=== PATIENT | male | born 1970 | race Caucasian/White ===

== ENCOUNTER → 2016-10-11 | Outpatient (CLI) | payer OTHER | LOC: M PAIN 11:20 | PROVIDERS: ATTEND Nurse Practitioner Family | DX: G89.29 Other chronic pain (principal); M54.6 Pain in thoracic spine; M54.5 Low back pain; R25.2 Cramp and spasm; J45.909 Unspecified asthma, uncomplicated; F17.200 Nicotine dependence, unspecified, uncomplicated; Z79.899 Other long term (current) drug therapy ==

== ENCOUNTER 2016-10-29 09:05 | Outpatient (RCR) | payer OTHER | END 2016-10-30 | LOC: M OT 09:05 | PROVIDERS: ATTEND Orthopaedic Surgery | DX: Z51.89 Encounter for other specified aftercare (principal); S52.551D Other extraarticular fracture of lower end of right radius, subsequent encounter for closed fracture with routine healing; S62.614D Displaced fracture of proximal phalanx of right ring finger, subsequent encounter for fracture with routine healing; S22.000D Wedge compression fracture of unspecified thoracic vertebra, subsequent encounter for fracture with routine healing; M54.9 Dorsalgia, unspecified ==

== ENCOUNTER 2016-10-31 10:34 | Outpatient (RCR) | payer OTHER | END 2016-11-27 | LOC: M OT 10:34 | PROVIDERS: ATTEND Orthopaedic Surgery | DX: Z51.89 Encounter for other specified aftercare (principal); M54.9 Dorsalgia, unspecified; G89.29 Other chronic pain; S22.000D Wedge compression fracture of unspecified thoracic vertebra, subsequent encounter for fracture with routine healing; X58.XXXD Exposure to other specified factors, subsequent encounter; Y93.9 Activity, unspecified; Y92.9 Unspecified place or not applicable; Y99.8 Other external cause status ==

== ENCOUNTER → 2016-11-08 | Outpatient (CLI) | payer OTHER ==
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
== END ==
LOC: M PAIN 09:20
PROVIDERS: ATTEND Nurse Practitioner Family
DX: Z09 Encounter for follow-up examination after completed treatment for conditions other than malignant neoplasm (principal); R25.2 Cramp and spasm; M54.6 Pain in thoracic spine; G89.29 Other chronic pain; M54.5 Low back pain; J44.9 Chronic obstructive pulmonary disease, unspecified; L23.81 Allergic contact dermatitis due to animal (cat) (dog) dander; J30.89 Other allergic rhinitis; Z79.899 Other long term (current) drug therapy

== ENCOUNTER → 2016-12-06 | Outpatient (CLI) | payer OTHER ==
--- NOTE | 2016-12-08 00:47 | ECWPNPC ---
PATIENT NAME: NENA BARRY : 1970 GENDER: MALE VISIT DATE: 12/06/2016 DISCHARGE DATE: 12/06/16 1035 VISIT LOCKED DATE TIME: PHYSICIAN: SARI GRANDE RESOURCE: SARI GRANDE REASON FOR APPOINTMENT 1. BACK PAIN HISTORY OF PRESENT ILLNESS HISTORY OF PRESENT ILLNESS: PAIN THE PATIENT DESCRIBES THE PAIN... FALL RISK SCREENING: SCREENING :NO FALLS IN THE PAST YEAR TODAY'S VISIT: NOTES: RATES PAIN TODAY 9/10. NOTES WORST PAIN ALONG SACRUM AND IN THORACIC MUSCLES. REPORTS METHOCARBAMEL WAS TOO BIG TO SWALLOW COMF AND DID NOT PRODUCE GOOD MUSCLE SPASM CONTROL.. CURRENT MEDICATIONS TAKING SYMBICORT 80-4.5 MCG/ACT AEROSOL 2 PUFFS INHALATION TWICE A DAY TAKING VENTOLIN HFA 108 (90 BASE) MCG/ACT AEROSOL SOLUTION 2 PUFFS NEEDED INHALATION EVERY 4 HRS TAKING SPIRIVA HANDIHALER 18 MCG CAPSULE INHALATION TAKING METHOCARBAMOL 750 MG TABLET 1 TABLET ORALLY Q 8 HRS TAKING GABAPENTIN 300 MG CAPSULE 1 CAPSULE ORALLY THREE TIMES A DAY TAKING FLUOXETINE 20 MG CAPSULE 2 CAPSULE IN THE MORNING ORALLY ONCE A DAY NOT-TAKING OMEPRAZOLE 40 MG CAPSULE DELAYED RELEASE 1 CAPSULE ORALLY ONCE A DAY NOT-TAKING MELOXICAM 7.5 MG TABLET 1 TABLET ORALLY ONCE A DAY NOT-TAKING BACLOFEN 20 MG TABLET 1 TABLET WITH FOOD OR MILK ORALLY EVERY 8 HRS NOT-TAKING BACLOFEN 10 MG TABLET 1 TABLET WITH FOOD OR MILK ORALLY THREE TIMES A DAY NOT-TAKING SYMBICORT 80-4.5 MCG/ACT AEROSOL 2 PUFFS INHALATION TWICE A DAY PAST MEDICAL HISTORY ASTHMA COPD ALLERGIES CATS/ENVIRONMENTAL SOCIAL HISTORY GENERAL: TOBACCO USE ARE YOU A:NONSMOKER LEARNING BARRIERS / SPECIAL NEEDS ORIENTED TO PLAN OF CARE: PATIENT, PAIN MANAGEMENT PATIENT, ORIENTED TO PLAN OF CARE: PATIENT, PAIN MANAGEMENT PATIENT. NEW PATIENT PAIN DIARY TODAY'S VISITNOTES FROM 0-10, WHAT LEVEL IS YOUR PAIN TODAY?0 PAIN CLINIC PFS, CLERGY, PUBLIC HEALTH REFERRALS PFS REFERRAL NEEDED?NO CLERGY REFERRAL NEEDED?NO PUBLIC HEALTH REFERRAL NEEDED?NO WAS THE PROVIDER NOTIFIED OF ANY PERTINENT INFO?NO PFS REFERRAL NEEDED?NO CLERGY REFERRAL NEEDED?NO PUBLIC HEALTH REFERRAL NEEDED?NO WAS THE PROVIDER NOTIFIED OF ANY PERTINENT INFO?NO REVIEW OF SYSTEMS CONSTITUTIONAL: ANY CHANGE IN YOUR MEDICAL CONDITION? NO . CHILLS NO . FEVER NO . INFECTION: DO YOU HAVE NEW INFECTIONS? NO . DO YOU HAVE HISTORY OF MRSA? NO . MUSCULOSKELETAL: ANY NEW PATTERNS OF PAIN OR NUMBNESS? PT REPORTS NEW NUMBNESS IN RIGHT FOOT, AND NEW PAIN IN BACK OF NECK . GASTROENTEROLOGY: ANY NEW CHANGE IN BOWEL CONTROL? NO . GENITOURINARY: ANY NEW CHANGE IN BLADDER CONTROL? NO . IS THERE A CHANCE YOU COULD BE ? NO . HEMATOLOGY/LYMPH: DO YOU TAKE ANY BLOOD THINNERS? (FOR EXAMPLE- COUMADIN, PLAVIX, AGGRENOX, PLATEL, PRADAXA, OR XARELTO) NO . WHEN WAS YOUR LAST DOSE? DATE: TIME: . NEUROLOGY: HAVE YOU FALLEN IN THE PAST 6 MONTHS? NO . ANY NEW EXTREMITY NUMBNESS OR WEAKNESS? NO . CARDIOLOGY: DO YOU HAVE A PACEMAKER OR DEFIBRILLATOR? NO . RESPIRATORY: HAVE YOU BEEN SICK IN THE PAST WEEK? NO . FEVER NO . FLU LIKE SYMPTOMS? NO . COUGH YES . INTEGUMENTARY: DO YOU HAVE ANY RASHES OR OPEN SORES? NO . ALLERGIC/IMMUNO: ARE YOU ALLERGIC TO SHELLFISH OR IV DYE? NO . ANY NEW ALLERGIES? NO . PSYCHIATRIC: DO YOU HAVE THOUGHTS OF HURTING YOURSELF OR SOMEONE ELSE? NO . ARE YOU ABUSED, NEGLECTED, OR IN AN UNSAFE ENVIRONMENT? NO . ENDOCRINOLOGY: ARE YOU DIABETIC? NO . OTHER: DO YOU NEED ANY PRESCRIPTIONS? NO . IF YES, PLEASE LIST: ____ . ANY NEW PROBLEMS WITH YOUR MEDICATIONS? NO . WHEN DID YOU LAST EAT? ____ . WHEN DID YOU LAST DRINK? ____ . WHAT DID YOU LAST DRINK? ____ . NAME OF PERSON DRIVING YOU HOME? ____ . DO YOU HAVE ANY OTHER QUESTIONS OR CONCERNS YES PT WOULD LIKE TO DISCUSS SOMETHING DIFFERENT FOR PAIN AND MUSCLE SPASMS, DOESN'T FEEL LIKE CURRENT MEDICATIONS ARE EFFECTIVE&NBSP;. REVIEWED BY: PROVIDER: SARI PAEZ . VITAL SIGNS WT 213.2 LBS, HT 67 IN, BMI 33.39 INDEX, BP 158/86 MM HG, HR 81 /MIN, RR 18 /MIN, TEMP 98.1 F, OXYGEN SAT % 94, SAFE IN ENV? (Y/N) YES, NA INITIALS TL 0931, REVIEWED BY: ANDREI. EXAMINATION GENERAL EXAMINATION: PSYCHALERT , ORIENTED X 3 , APPROPRIATE MOOD AND AFFECT . LUNGS:CLEAR TO AUSCULTATION BILATERALLY. HEART:HEART RATE REGULAR. MUSCULOSKELETAL:INCREASED MUSCLE TONE BILATERAL LOWER EXTREMITIES. TENDERNESS OVER LUMBAR SPINOUS PROCESSES AND ACROSS THE LUMBOSACRAL AXIS. TIGHT FIBROUS BANDS IDENTIFIED OVER THE LUMBAR PARAVERTEBRAL MUSCLES. HAS DIFFICULTY RISING TO A FULL UPRIGHT POSITION. GAIT WIDE-BASED AND ANTALGIC.. NEUROLOGIC EXAM:DTR'S 3+ BUE, 4+ WITH CROSSOVER BLE. MYOCLONIC JERKS. ASSESSMENTS SPASTICITY - R25.2 (PRIMARY) PAIN IN THORACIC SPINE - M54.6 OTHER CHRONIC PAIN - G89.29 LOW BACK PAIN ASSOCIATED WITH A SPINAL DISORDER OTHER THAN RADICULOPATHY OR SPINAL STENOSIS - M54.5 TREATMENT SPASTICITY START BACLOFEN TABLET, 20 MG, 1 TABLET WITH FOOD OR MILK, ORALLY, EVERY 8 HRS, 30 DAY(S), 90, REFILLS 2 START OXYCODONE HCL TABLET, 5 MG, 1 TABLET, ORALLY, EVERY 8-12 HRS PRN PAIN MDD=2, 30 DAY(S), 60, REFILLS 0 NOTES: HAS STOPPED RITALIN THIS SEEMS TO INCREASE HEADACHES. TO START ON SOMETHING NEW. NARCOTIC AGREEMENT AND UTOX TODAY, RISKS AND BENEFITS OF NARCOTIC/OPIOD MEDICATIONS WERE REVIEWED WITH PATIENT - THIS INCLUDES BUT IS NOT LIMITED TO RISK OF DEPENDANCE/DEVELOPMENT OF ADDICTION, MOOD DISTURBANCE AND DEPRESSION, OSTEOPOROSIS, HORMONAL AND LABIDAL CHANGES, RESPIRATORY DEPRESSION AND . PATIENT IS ADVISED NOT TO DRIVE WHILE ON THESE MEDICATIONS. CLINICAL NOTES: ISTOP REGISTRY REVIEWED AND DEMNOSTRATES COMPLLIANCE. BRINGS IN MEDICATIONS WHICH IS APPROPRIATE FOR WHAT WAS DISPENSED. RECENT URINE TOXICOLOGY REVIEWED. NO UNAUTHORIZED MEDICATIONS. NO ILLICIT SUBSTANCES AND PRESCRIBED MEDICATIONS WERE PRESENT. PROCEDURE CODES FA211 ESTABILISHED PATIENT [facility] CHARGE DISPOSITION & COMMUNICATION FOLLOW UP 26-28 DAYS ELECTRONICALLY SIGNED BY CLARKE OCONNELL ON 12/07/2016 AT 06:33 PM EST DISCLAIMER : THIS IS A VISIT SUMMARY EXTRACTED FROM THE [employer] CHART. IT IS NOT A COPY OF THE [employer] PROGRESS NOTE. GLENNY
== END ==
LOC: M PAIN 09:20
PROVIDERS: ATTEND Nurse Practitioner Family
DX: Z09 Encounter for follow-up examination after completed treatment for conditions other than malignant neoplasm (principal); G89.29 Other chronic pain; R25.2 Cramp and spasm; M54.6 Pain in thoracic spine; M54.5 Low back pain; J44.9 Chronic obstructive pulmonary disease, unspecified; Z79.899 Other long term (current) drug therapy

== ENCOUNTER → 2017-01-11 | Outpatient (CLI) | payer OTHER ==
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
== END ==
LOC: M PAIN 10:20
PROVIDERS: ATTEND Nurse Practitioner Family
DX: R25.2 Cramp and spasm (principal); M54.6 Pain in thoracic spine; G89.29 Other chronic pain; M54.5 Low back pain; Z79.891 Long term (current) use of opiate analgesic; Z79.899 Other long term (current) drug therapy; J45.909 Unspecified asthma, uncomplicated; J44.9 Chronic obstructive pulmonary disease, unspecified; L23.81 Allergic contact dermatitis due to animal (cat) (dog) dander

== ENCOUNTER → 2017-02-08 | Outpatient (CLI) | payer OTHER ==
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
== END ==
LOC: M PAIN 10:00
PROVIDERS: ATTEND Nurse Practitioner Family
DX: R25.2 Cramp and spasm (principal); M54.6 Pain in thoracic spine; G89.29 Other chronic pain; M54.5 Low back pain; Z79.899 Other long term (current) drug therapy; J44.9 Chronic obstructive pulmonary disease, unspecified; J30.81 Allergic rhinitis due to animal (cat) (dog) hair and dander

== ENCOUNTER → 2017-03-06 | Outpatient (CLI) | payer OTHER ==
--- NOTE | 2017-03-27 01:39 | ECWPNPC ---
PATIENT NAME: NENA BARRY : 1970 GENDER: MALE VISIT DATE: 03/06/2017 DISCHARGE DATE: 03/06/17 1325 VISIT LOCKED DATE TIME: PHYSICIAN: SARI GRANDE RESOURCE: SARI GRANDE HISTORY OF PRESENT ILLNESS HISTORY OF PRESENT ILLNESS: PAIN THE PATIENT DESCRIBES THE PAIN... FALL RISK SCREENING: SCREENING :TWO OR MORE FALLS WITH INJURY IN THE PAST YEAR TODAY'S VISIT: NOTES: RATES PAIN TODAY 8-9/10. DESCRIBES PAIN SHARP, STABBING, ACHING, SHOOTING THROBBING. PAIN IS CENTERED FROM SHOULDER BADES TO SACRUM, AND INTO RIGHT FOREARM AND HAND.. CURRENT MEDICATIONS TAKING SYMBICORT 80-4.5 MCG/ACT AEROSOL 2 PUFFS INHALATION TWICE A DAY TAKING VENTOLIN HFA 108 (90 BASE) MCG/ACT AEROSOL SOLUTION 2 PUFFS NEEDED INHALATION EVERY 4 HRS TAKING SPIRIVA HANDIHALER 18 MCG CAPSULE INHALATION TAKING FLUOXETINE 20 MG CAPSULE 2 CAPSULE IN THE MORNING ORALLY ONCE A DAY TAKING BACLOFEN 20 MG TABLET 1 TABLET WITH FOOD OR MILK ORALLY EVERY 8 HRS TAKING SINGULAIR 10 MG TABLET 1 TABLET IN THE EVENING ORALLY ONCE A DAY TAKING OMEPRAZOLE 40 MG CAPSULE DELAYED RELEASE 1 CAPSULE ORALLY ONCE A DAY TAKING GABAPENTIN 400 MG CAPSULE 1 CAPSULE ORALLY THREE TIMES A DAY TAKING OXYCODONE HCL 5 MG TABLET 1 TABLET ORALLY EVERY 8 HRS PRN MDD=3 NOT-TAKING NORCO 10-325 MG TABLET 1 TABLET NEEDED ORALLY EVERY 8-12 HRS PRN MDD=2 NOT-TAKING MELOXICAM 7.5 MG TABLET 1 TABLET ORALLY ONCE A DAY NOT-TAKING BACLOFEN 10 MG TABLET 1 TABLET WITH FOOD OR MILK ORALLY THREE TIMES A DAY NOT-TAKING SYMBICORT 80-4.5 MCG/ACT AEROSOL 2 PUFFS INHALATION TWICE A DAY DISCONTINUED METHOCARBAMOL 750 MG TABLET 1 TABLET ORALLY Q 8 HRS DISCONTINUED BACLOFEN 20 MG TABLET 1 TABLET WITH FOOD OR MILK ORALLY EVERY 8 HRS DISCONTINUED PREDNISONE 10 MG (21) TABLET THERAPY PACK DIRECTED ORALLY TAKE DIRECTEDON PACKAGE MEDICATION LIST REVIEWED AND RECONCILED WITH THE PATIENT PAST MEDICAL HISTORY ASTHMA COPD ALLERGIES CATS/ENVIRONMENTAL FAMILY HISTORY FATHER: MOTHER: ALIVE SIBLINGS: ALIVE SOCIAL HISTORY GENERAL: TOBACCO USE ARE YOU A:CURRENT SMOKER PATIENT COUNSELED ON THE DANGERS OF TOBACCO USE AND URGED TO QUIT:03/06/2017 ARE YOU INTERESTED IN QUITTING?NOT READY TO QUIT COUNSELED THE PATIENT ON SMOKING EFFECTS, EDUCATION [id number]/07/2017 PAIN CLINIC PFS, CLERGY, PUBLIC HEALTH REFERRALS CLERGY REFERRAL NEEDED?NO WAS THE PROVIDER NOTIFIED OF ANY PERTINENT INFO?NO PFS REFERRAL NEEDED?NO PUBLIC HEALTH REFERRAL NEEDED?NO PATIENT: ____. REVIEW OF SYSTEMS REVIEWED BY: PROVIDER: SARI PAEZ . CONSTITUTIONAL: ANY CHANGE IN YOUR MEDICAL CONDITION? YES,SHAKINESS . CHILLS NO . FEVER NO . INFECTION: DO YOU HAVE NEW INFECTIONS? NO . DO YOU HAVE HISTORY OF MRSA? NO . MUSCULOSKELETAL: ANY NEW PATTERNS OF PAIN OR NUMBNESS? NO . GASTROENTEROLOGY: ANY NEW CHANGE IN BOWEL CONTROL? NO . GENITOURINARY: ANY NEW CHANGE IN BLADDER CONTROL? NO . IS THERE A CHANCE YOU COULD BE ? NO . HEMATOLOGY/LYMPH: DO YOU TAKE ANY BLOOD THINNERS? (FOR EXAMPLE- COUMADIN, PLAVIX, AGGRENOX, PLATEL, PRADAXA, OR XARELTO) NO . WHEN WAS YOUR LAST DOSE? DATE: TIME: . NEUROLOGY: HAVE YOU FALLEN IN THE PAST 6 MONTHS? NO . ANY NEW EXTREMITY NUMBNESS OR WEAKNESS? NO . CARDIOLOGY: DO YOU HAVE A PACEMAKER OR DEFIBRILLATOR? NO . RESPIRATORY: HAVE YOU BEEN SICK IN THE PAST WEEK? NO . FEVER NO . FLU LIKE SYMPTOMS? NO . COUGH NO . INTEGUMENTARY: DO YOU HAVE ANY RASHES OR OPEN SORES? NO . ALLERGIC/IMMUNO: ARE YOU ALLERGIC TO SHELLFISH OR IV DYE? NO . ANY NEW ALLERGIES? NO . PSYCHIATRIC: DO YOU HAVE THOUGHTS OF HURTING YOURSELF OR SOMEONE ELSE? NO . ARE YOU ABUSED, NEGLECTED, OR IN AN UNSAFE ENVIRONMENT? NO . ENDOCRINOLOGY: ARE YOU DIABETIC? NO . OTHER: DO YOU NEED ANY PRESCRIPTIONS? YES . IF YES, PLEASE LIST: ____BACLOFEN,OXYCODONE,GABAPENTIN . ANY NEW PROBLEMS WITH YOUR MEDICATIONS? NO . WHEN DID YOU LAST EAT? ____ . WHEN DID YOU LAST DRINK? ____ . WHAT DID YOU LAST DRINK? ____ . NAME OF PERSON DRIVING YOU HOME? ____ . DO YOU HAVE ANY OTHER QUESTIONS OR CONCERNS NO . VITAL SIGNS WT 220.8 LBS, HT 67 IN, BMI 34.58 INDEX, BP 166/104 MM HG, REPEAT BP 148/89 MM HG, HR 76 /MIN, RR 18 /MIN, TEMP 98.6 F, OXYGEN SAT % 99%, NA INITIALS AW 1232, REVIEWED BY: PARMJIT KNOW ABOUT BP. EXAMINATION GENERAL EXAMINATION: PSYCHALERT , ORIENTED X 3 , APPROPRIATE MOOD AND AFFECT . LUNGS:CLEAR TO AUSCULTATION BILATERALLY. HEART:HEART RATE REGULAR. MUSCULOSKELETAL:HYPERSENSATIVITY TO LIGHT TOUCH OVER ENTIRE BACK. INCREASED MUSCLE TONE TO BILATRAL LOWER EXTREMITIES. , TRIGGER POINTS AND TIGHT FIBROUS BANDS IDENTIFIED OVER SACRUM AND ACROSS LUMBOSACRAL AXIS. NEUROLOGIC EXAM:DTR'S 3+ BUE, 4+ WITH CROSSOVER BLE. MYOCLONIC JERKS. ASSESSMENTS SPASTICITY - R25.2 (PRIMARY) PAIN IN THORACIC SPINE - M54.6 OTHER CHRONIC PAIN - G89.29 LOW BACK PAIN ASSOCIATED WITH A SPINAL DISORDER OTHER THAN RADICULOPATHY OR SPINAL STENOSIS - M54.5 TREATMENT SPASTICITY REFILL BACLOFEN TABLET, 20 MG, 1 TABLET WITH FOOD OR MILK, ORALLY, EVERY 8 HRS, 30 DAY(S), 90, REFILLS 2 STOP NORCO TABLET, 10-325 MG, 1 TABLET NEEDED, ORALLY, EVERY 8-12 HRS PRN MDD=2 REFILL OXYCODONE HCL TABLET, 5 MG, 1 TABLET, ORALLY, EVERY 8 HRS PRN MDD=3, 30 DAY(S), 90, REFILLS 0 START CLONIDINE HCL TABLET, 0.1 MG, 1 TABLET AT BEDTIME, ORALLY, BEFORE BEDTIME, 30 DAY(S), 30, REFILLS 1 START OXYCODONE HCL TABLET, 10 MG, 1 TABLET NEEDED, ORALLY, EVERY 6 TO 8 HRS PRN PAIN MDD=3, 30 DAY(S), 90, REFILLS 0 NOTES: CONSIDER INJECTION TREATMENT,TRIGGER POINT INJECTION MATERIAL WAS PRINTED,FACET JOINT INJECTION MATERIAL WAS PRINTED,WHAT IS LUMBAR EPIDURAL INJECTION? MATERIAL WAS PRINTED. CLINICAL NOTES: ISTOP REGISTRY REVIEWED AND DEMNOSTRATES COMPLLIANCE. BRINGS IN MEDICATIONS WHICH IS APPROPRIATE FOR WHAT WAS DISPENSED. RECENT URINE TOXICOLOGY REVIEWED. NO UNAUTHORIZED MEDICATIONS. NO ILLICIT SUBSTANCES AND PRESCRIBED MEDICATIONS WERE PRESENT. PREVENTIVE MEDICINE PAIN CLINIC TEACHING: PROCEDURE TEACHING REVIEWED WITH PATIENT LUMBAR EPIDURAL, TRIGGER POINT INJECTIONS, AND FACET JOINT INJECTIONS. PT SAID HE WILL REVIEW AND DECIDE ON NEXT VISIT WHAT HE WANTS TO DO FOR PAIN RELIEF. TAMMY. PROCEDURE CODES FA211 ESTABILISHED PATIENT [facility] CHARGE DISPOSITION & COMMUNICATION FOLLOW UP 26-28 DAYS (REASON: BACK PAIN) ELECTRONICALLY SIGNED BY CLARKE OCONNELL ON 03/26/2017 AT 04:59 PM EDT DISCLAIMER : THIS IS A VISIT SUMMARY EXTRACTED FROM THE [employer] CHART. IT IS NOT A COPY OF THE [employer] PROGRESS NOTE. GLENNY
== END ==
LOC: M PAIN 11:00
PROVIDERS: ATTEND Nurse Practitioner Family
DX: R25.2 Cramp and spasm (principal); M54.6 Pain in thoracic spine; G89.29 Other chronic pain; M54.5 Low back pain; Z79.891 Long term (current) use of opiate analgesic; Z79.899 Other long term (current) drug therapy; Z87.891 Personal history of nicotine dependence; J30.81 Allergic rhinitis due to animal (cat) (dog) hair and dander

== ENCOUNTER → 2017-04-05 | Outpatient (CLI) | payer OTHER ==
--- NOTE | 2017-04-13 01:03 | ECWPNPC ---
PATIENT NAME: NENA BARRY : 1970 GENDER: MALE VISIT DATE: 04/05/2017 DISCHARGE DATE: 04/05/17 1253 VISIT LOCKED DATE TIME: PHYSICIAN: SARI GRANDE RESOURCE: SARI GRANDE REASON FOR APPOINTMENT 1. BACK HISTORY OF PRESENT ILLNESS HISTORY OF PRESENT ILLNESS: PAIN THE PATIENT DESCRIBES THE PAIN... FALL RISK SCREENING: SCREENING :NO FALLS IN THE PAST YEAR TODAY'S VISIT: NOTES: RATES PAIN LEVEL TODAY . DESCRIBES PAIN SHARP, STABBING, BURNING, THROBBING, SORE AND SHOOTING. PAIN IS CENTERED MID AND LOW BACK AND RIGHT HAND. REPORTS FEET GO NUMB WILL HANDS INTERMITTANTLY. CURRENT MEDICATIONS TAKING SYMBICORT 80-4.5 MCG/ACT AEROSOL 2 PUFFS INHALATION TWICE A DAY TAKING VENTOLIN HFA 108 (90 BASE) MCG/ACT AEROSOL SOLUTION 2 PUFFS NEEDED INHALATION EVERY 4 HRS TAKING SPIRIVA HANDIHALER 18 MCG CAPSULE INHALATION TAKING FLUOXETINE 20 MG CAPSULE 1 CAPSULE IN THE MORNING ORALLY ONCE A DAY TAKING SINGULAIR 10 MG TABLET 1 TABLET IN THE EVENING ORALLY ONCE A DAY TAKING OMEPRAZOLE 40 MG CAPSULE DELAYED RELEASE 1 CAPSULE ORALLY ONCE A DAY TAKING GABAPENTIN 400 MG CAPSULE 1 CAPSULE ORALLY THREE TIMES A DAY TAKING BACLOFEN 20 MG TABLET 1 TABLET WITH FOOD OR MILK ORALLY EVERY 8 HRS TAKING CLONIDINE HCL 0.1 MG TABLET 1 TABLET AT BEDTIME ORALLY BEFORE BEDTIME TAKING OXYCODONE HCL 10 MG TABLET 1 TABLET NEEDED ORALLY EVERY 6 TO 8 HRS PRN PAIN MDD=3 TAKING TRAZODONE HCL 100 MG TABLET 1 TABLET AT BEDTIME ORALLY ONCE A DAY TAKING DEXMETHYLPHENIDATE HCL ER 15 MG CAPSULE EXTENDED RELEASE 24 HOUR 1 CAPSULE IN THE MORNING ORALLY ONCE A DAY NOT-TAKING MELOXICAM 7.5 MG TABLET 1 TABLET ORALLY ONCE A DAY NOT-TAKING BACLOFEN 10 MG TABLET 1 TABLET WITH FOOD OR MILK ORALLY THREE TIMES A DAY NOT-TAKING SYMBICORT 80-4.5 MCG/ACT AEROSOL 2 PUFFS INHALATION TWICE A DAY DISCONTINUED OXYCODONE HCL 5 MG TABLET 1 TABLET ORALLY EVERY 8 HRS PRN MDD=3 MEDICATION LIST REVIEWED AND RECONCILED WITH THE PATIENT PAST MEDICAL HISTORY ASTHMA COPD ALLERGIES CATS/ENVIRONMENTAL REVIEW OF SYSTEMS FOLLOW-UP ROS: NEUROLOGY: POOR MEMORY . PSYCHOLOGY: DEPRESSION - NOTES MENTAL HEALTH APPOINTMENT NEXT WEEK. HAS BEEN STARTED ON NEW MED. HAVING ISSUES WITH SLEEP AND ENERGY LEVEL . REVIEWED BY: PROVIDER: SARI PAEZ . CONSTITUTIONAL: ANY CHANGE IN YOUR MEDICAL CONDITION? YES, NOT SLEEPING WELL, MEMORY PROBLEMS . CHILLS NO . FEVER NO . INFECTION: DO YOU HAVE NEW INFECTIONS? NO . DO YOU HAVE HISTORY OF MRSA? NO . MUSCULOSKELETAL: ANY NEW PATTERNS OF PAIN OR NUMBNESS? YES , HANDS AND FEET FALL ASLEEP AT TIMES . GASTROENTEROLOGY: ANY NEW CHANGE IN BOWEL CONTROL? NO . GENITOURINARY: ANY NEW CHANGE IN BLADDER CONTROL? NO . IS THERE A CHANCE YOU COULD BE ? NO . HEMATOLOGY/LYMPH: DO YOU TAKE ANY BLOOD THINNERS? (FOR EXAMPLE- COUMADIN, PLAVIX, AGGRENOX, PLATEL, PRADAXA, OR XARELTO) NO . WHEN WAS YOUR LAST DOSE? DATE: TIME: . NEUROLOGY: HAVE YOU FALLEN IN THE PAST 6 MONTHS? NO . ANY NEW EXTREMITY NUMBNESS OR WEAKNESS? NO . CARDIOLOGY: DO YOU HAVE A PACEMAKER OR DEFIBRILLATOR? NO . RESPIRATORY: HAVE YOU BEEN SICK IN THE PAST WEEK? NO . FEVER NO . FLU LIKE SYMPTOMS? NO . COUGH NO . INTEGUMENTARY: DO YOU HAVE ANY RASHES OR OPEN SORES? YES . ALLERGIC/IMMUNO: ARE YOU ALLERGIC TO SHELLFISH OR IV DYE? YES . ANY NEW ALLERGIES? NO . PSYCHIATRIC: DO YOU HAVE THOUGHTS OF HURTING YOURSELF OR SOMEONE ELSE? NO . ARE YOU ABUSED, NEGLECTED, OR IN AN UNSAFE ENVIRONMENT? NO . ENDOCRINOLOGY: ARE YOU DIABETIC? NO . OTHER: DO YOU NEED ANY PRESCRIPTIONS? YES . IF YES, PLEASE LIST: ALL OF THEM . ANY NEW PROBLEMS WITH YOUR MEDICATIONS? NO . WHEN DID YOU LAST EAT? ____ . WHEN DID YOU LAST DRINK? ____ . WHAT DID YOU LAST DRINK? ____ . NAME OF PERSON DRIVING YOU HOME? ____ . DO YOU HAVE ANY OTHER QUESTIONS OR CONCERNS NO . VITAL SIGNS WT 219.6 LBS, HT 67 IN, BMI 34.39 INDEX, BP 139/78 MM HG, HR 80 /MIN, RR 16 /MIN, TEMP 98.1 F, OXYGEN SAT % 97%, NA INITIALS SC 12:05, REVIEWED BY: NL. EXAMINATION GENERAL EXAMINATION: PSYCHALERT , ORIENTED X 3 , GOOD EYE CONTACT, ABLE TO SMILE TODAY. LUNGS:CLEAR TO AUSCULTATION BILATERALLY. HEART:HEART RATE REGULAR. MUSCULOSKELETAL:HYPERSENSATIVITY TO LIGHT TOUCH OVER ENTIRE BACK. INCREASED MUSCLE TONE TO BILATRAL LOWER EXTREMITIES. , TRIGGER POINTS AND TIGHT FIBROUS BANDS IDENTIFIED OVER SACRUM AND ACROSS LUMBOSACRAL AXIS. RESTRICTIONOF RANGE OF MOTION WITH BACK FLEXION, ROTATION AND EXTENSION.. NEUROLOGIC EXAM:DTR'S 3+ BILATERAL LOWER EXTREMITIES INTERMITTANT. MYOCLONIC JERKS NOTED IN LOWER EXTREMITIES. ASSESSMENTS MYALGIA - M79.1 (PRIMARY) SPASTICITY - R25.2 PAIN IN THORACIC SPINE - M54.6 OTHER CHRONIC PAIN - G89.29 LOW BACK PAIN ASSOCIATED WITH A SPINAL DISORDER OTHER THAN RADICULOPATHY OR SPINAL STENOSIS - M54.5 TREATMENT SPASTICITY REFILL OXYCODONE HCL TABLET, 10 MG, 1 TABLET NEEDED, ORALLY, EVERY 6 TO 8 HRS PRN PAIN MDD=3, 30 DAY(S), 90, REFILLS 0 TRIGGER POINT 3 + SARI LEES 04/05/2017 12:33:18 PM > LOW AND MID BACK - NEEDS SEDATION NOTES: TRIGGER POINT INJECTION: YOUR EXPERIENCE MATERIAL WAS PRINTED,TRIGGER POINT INJECTION MATERIAL WAS PRINTED. CLINICAL NOTES: ISTOP REGISTRY REVIEWED AND DEMNOSTRATES COMPLLIANCE. BRINGS IN MEDICATIONS WHICH IS APPROPRIATE FOR WHAT WAS DISPENSED. RECENT URINE TOXICOLOGY REVIEWED. NO UNAUTHORIZED MEDICATIONS. NO ILLICIT SUBSTANCES AND PRESCRIBED MEDICATIONS WERE PRESENT. PREVENTIVE MEDICINE DISCUSSED TPI AND PRE PROCEDURE CARE. / GAVE PT WRITTEN INFO TO REVIEW AND PT DID EXPRESS UNDERSTANDING OF PRE PROCEDURE CARE. PROCEDURE CODES FA211 ESTABILISHED PATIENT [facility] CHARGE DISPOSITION & COMMUNICATION FOLLOW UP 1 MONTH (REASON: CHECK AUTH FOR TPI- LOW BACK ) ELECTRONICALLY SIGNED BY CLARKE OCONNELL ON 04/12/2017 AT 08:38 AM EDT DISCLAIMER : THIS IS A VISIT SUMMARY EXTRACTED FROM THE [employer] CHART. IT IS NOT A COPY OF THE [employer] PROGRESS NOTE. MTDD
== END ==
LOC: M PAIN 12:00
PROVIDERS: ATTEND Nurse Practitioner Family
DX: M79.1 Myalgia (principal); R25.2 Cramp and spasm; M54.6 Pain in thoracic spine; G89.29 Other chronic pain; M54.5 Low back pain; Z79.891 Long term (current) use of opiate analgesic; Z79.899 Other long term (current) drug therapy; J45.909 Unspecified asthma, uncomplicated; J44.9 Chronic obstructive pulmonary disease, unspecified

== ENCOUNTER → 2017-04-24 | Outpatient (CLI) | payer OTHER ==
[~2017-04-24] MED LIST: BUPIVACAINE HCL 0.25% 10 ML VIAL As Ordered ONE; BUPIVACAINE HCL 0.25% 30 ML VIAL As Ordered ONE; TRIAMCINOLONE ACETONIDE SUSP 40 MG/ML VIAL (J3301) As Ordered ONE; diazePAM 5 MG TAB As Ordered ONE; oxyCODONE 5MG TAB As Ordered ONE
--- NOTE | 2017-05-12 23:37 | ECWPNPC ---
PATIENT NAME: NENA BARRY : 1970 GENDER: MALE VISIT DATE: 04/24/2017 DISCHARGE DATE: 04/24/17 1554 VISIT LOCKED DATE TIME: PHYSICIAN: DARON MULLEN RESOURCE: DARON MULLEN REASON FOR APPOINTMENT 1. LOW BACK HISTORY OF PRESENT ILLNESS HISTORY OF PRESENT ILLNESS: PAIN THE PATIENT DESCRIBES THE PAIN... FALL RISK SCREENING: SCREENING :TWO OR MORE FALLS WITH INJURY IN THE PAST YEAR CURRENT MEDICATIONS TAKING SYMBICORT 80-4.5 MCG/ACT AEROSOL 2 PUFFS INHALATION TWICE A DAY, NOTES: 0600 TAKING VENTOLIN HFA 108 (90 BASE) MCG/ACT AEROSOL SOLUTION 2 PUFFS NEEDED INHALATION EVERY 4 HRS, NOTES: 0600 TAKING SPIRIVA HANDIHALER 18 MCG CAPSULE INHALATION , NOTES: 0600 TAKING FLUOXETINE 20 MG CAPSULE 1 CAPSULE IN THE MORNING ORALLY ONCE A DAY, NOTES: 1230 TAKING SINGULAIR 10 MG TABLET 1 TABLET IN THE EVENING ORALLY ONCE A DAY, NOTES: 0600 TAKING GABAPENTIN 400 MG CAPSULE 1 CAPSULE ORALLY THREE TIMES A DAY, NOTES: 1230 TAKING BACLOFEN 20 MG TABLET 1 TABLET WITH FOOD OR MILK ORALLY EVERY 8 HRS, NOTES: 1230 TAKING DEXMETHYLPHENIDATE HCL ER 15 MG CAPSULE EXTENDED RELEASE 24 HOUR 1 CAPSULE IN THE MORNING ORALLY ONCE A DAY, NOTES: 0600 TAKING OXYCODONE HCL 10 MG TABLET 1 TABLET NEEDED ORALLY EVERY 6 TO 8 HRS PRN PAIN MDD=3, NOTES: 1230 NOT-TAKING MELOXICAM 7.5 MG TABLET 1 TABLET ORALLY ONCE A DAY NOT-TAKING BACLOFEN 10 MG TABLET 1 TABLET WITH FOOD OR MILK ORALLY THREE TIMES A DAY NOT-TAKING SYMBICORT 80-4.5 MCG/ACT AEROSOL 2 PUFFS INHALATION TWICE A DAY DISCONTINUED OMEPRAZOLE 40 MG CAPSULE DELAYED RELEASE 1 CAPSULE ORALLY ONCE A DAY DISCONTINUED CLONIDINE HCL 0.1 MG TABLET 1 TABLET AT BEDTIME ORALLY BEFORE BEDTIME DISCONTINUED TRAZODONE HCL 100 MG TABLET 1 TABLET AT BEDTIME ORALLY ONCE A DAY MEDICATION LIST REVIEWED AND RECONCILED WITH THE PATIENT PAST MEDICAL HISTORY ASTHMA COPD HTN ALLERGIES CATS/ENVIRONMENTAL REVIEW OF SYSTEMS REVIEWED BY: PROVIDER: . CONSTITUTIONAL: ANY CHANGE IN YOUR MEDICAL CONDITION? YES, GETTING MORE FORGETFUL . CHILLS NO . FEVER NO . INFECTION: DO YOU HAVE NEW INFECTIONS? NO . DO YOU HAVE HISTORY OF MRSA? NO . MUSCULOSKELETAL: ANY NEW PATTERNS OF PAIN OR NUMBNESS? YES . GASTROENTEROLOGY: ANY NEW CHANGE IN BOWEL CONTROL? NO . GENITOURINARY: ANY NEW CHANGE IN BLADDER CONTROL? NO . IS THERE A CHANCE YOU COULD BE ? NO . HEMATOLOGY/LYMPH: DO YOU TAKE ANY BLOOD THINNERS? (FOR EXAMPLE- COUMADIN, PLAVIX, AGGRENOX, PLATEL, PRADAXA, OR XARELTO) NO . WHEN WAS YOUR LAST DOSE? DATE: TIME: . NEUROLOGY: HAVE YOU FALLEN IN THE PAST 6 MONTHS? YES . ANY NEW EXTREMITY NUMBNESS OR WEAKNESS? NO . CARDIOLOGY: DO YOU HAVE A PACEMAKER OR DEFIBRILLATOR? NO . RESPIRATORY: HAVE YOU BEEN SICK IN THE PAST WEEK? NO . FEVER NO . FLU LIKE SYMPTOMS? NO . COUGH NO . INTEGUMENTARY: DO YOU HAVE ANY RASHES OR OPEN SORES? YES . ALLERGIC/IMMUNO: ARE YOU ALLERGIC TO SHELLFISH OR IV DYE? NO . ANY NEW ALLERGIES? NO . PSYCHIATRIC: DO YOU HAVE THOUGHTS OF HURTING YOURSELF OR SOMEONE ELSE? NO . ARE YOU ABUSED, NEGLECTED, OR IN AN UNSAFE ENVIRONMENT? NO . ENDOCRINOLOGY: ARE YOU DIABETIC? NO . OTHER: DO YOU NEED ANY PRESCRIPTIONS? YES . IF YES, PLEASE LIST: ____OXYCODONE . ANY NEW PROBLEMS WITH YOUR MEDICATIONS? NO . WHEN DID YOU LAST EAT? ____04/23/17 . WHEN DID YOU LAST DRINK? ____1230 . WHAT DID YOU LAST DRINK? ____WATER . NAME OF PERSON DRIVING YOU HOME? ____OJSE BETANCUR . DO YOU HAVE ANY OTHER QUESTIONS OR CONCERNS NO . VITAL SIGNS WT 219.6 LBS, HT 67 IN, BMI 34.39 INDEX, BP 130/74 MM HG, HR 80 /MIN, RR 16 /MIN, TEMP 98.4 F, OXYGEN SAT % 97%, NA INITIALS SC 14:28, REVIEWED BY: VD. ASSESSMENTS MYALGIA - M79.1 (PRIMARY) PROCEDURES PN TRIGGER POINT INJECTION WITH STEROIDS PRE PROCEDURE DIAGNOSIS 1. MYALGIA 2. PAIN AT BILATERAL LOWER BACK AREA POST PROCEDURE DIAGNOSIS 1. MYALGIA 2. PAIN AT BILATERAL LOWER BACK AREA PROCEDURE TRIGGER POINT INJECTION AT BILATERAL LOWER BACK AREA SURGEON DR. DARON MULLEN E COMMERCE MANAGER NONE ANESTHESIA LOCAL PRE PROCEDURE NOTE THE PATIENT HAS A HISTORY OF CHRONIC PAIN AT THE RIGHT AND LOWER BACK AREA. I EVALUATE THE PATIENT AND REVIEWED THE CHART. THERE IS EVIDENCE OF BANDS OF TISSUE WITH RESTRICTION OF MOVEMENT AND PRESENCE OF TRIGGER POINT AT THE AFFECTED AREA. I WENT OVER THE RISKS, ALTERNATIVES, AND BENEFITS ASSOCIATED WITH THIS PROCEDURE. THE PATIENT WOULD LIKE TO PROCEED AND GIVE CONSENT TO PERFORMED THE PROCEDURE. THE PATIENT DENIES UNEXPLAINABLE WEIGHT LOSS, FEVER, CHILLS, OR NEW CHANGES IN URINARY OR BOWEL CONTROL DESCRIPTION OF PROCEDURE THE PATIENT WAS BROUGHT TO THE PROCEDURE ROOM AND PLACED IN THE SITTING POSITION. THE AREA WAS CLEANED WITH ALCOHOL. THE PROCEDURE WAS DONE USING ASEPTIC STERILE TECHNIQUE. I CHECKED LATERALITY AND THE LEVEL WHERE THE PROCEDURE WAS GOING TO BE PERFORMED WITH THE PATIENT AND THE SUPPORTING STAFF AT THE MOMENT OF THE TIME OUT IN THE PROCEDURE ROOM. USING A 25-GAUGE NEEDLE, TRIGGER POINTS WERE INJECTED AT THE RIGHT AND LOWER BACK AREA WITH A TOTAL OF 40 ML OF BUPIVACAINE 0.25% AND KENALOG 40 MG. THERE WAS NO EVIDENCE OF BLOOD, PARESTHESIA OR CEREBROSPINAL FLUID DURING THE PROCEDURE. THE PATIENT WAS SENT TO THE RECOVERY ROOM. THE PATIENT WAS MOVING THE EXTREMITIES AND DOING WELL. THERE WAS NO COMPLICATION DURING THE PROCEDURE POST PROCEDURE NOTE THE PATIENT WILL BE SEEN IN A FOLLOW UP IN THE NEXT FEW WEEKS. INSTRUCTIONS WERE GIVEN, QUESTIONS WERE ANSWERED, AND THE PATIENT EXPRESSED UNDERSTANDING AND AGREES WITH THE PLAN. I, JOSS BARBER, DOCUMENTED THE ABOVE INFORMATION ACTING A SCRIBE FOR DR. MULLEN. I HAVE REVIEWED THE ABOVE DOCUMENT, WRITTEN BY JOSS GIBSON AND I VERIFY THAT IT IS ACCURATE PROCEDURE CODES 40456 INJ TRIGGER POINT / [facility] [place] COMMUNICATION FOLLOW UP 3 WEEKS ELECTRONICALLY SIGNED BY DARON MULLEN MD ON 05/12/2017 AT 09:41 AM EDT DISCLAIMER : THIS IS A VISIT SUMMARY EXTRACTED FROM THE [employer] CHART. IT IS NOT A COPY OF THE [employer] PROGRESS NOTE. GLENNY
== END ==
LOC: M PAIN 14:20
PROVIDERS: ATTEND Anesthesiology
DX: G89.29 Other chronic pain (principal); M79.1 Myalgia; J44.9 Chronic obstructive pulmonary disease, unspecified; I10 Essential (primary) hypertension; L23.81 Allergic contact dermatitis due to animal (cat) (dog) dander; Z79.899 Other long term (current) drug therapy
CPT/HCPCS: 20552; J3301

== ENCOUNTER → 2017-05-03 | Outpatient (CLI) | payer OTHER ==
--- NOTE | 2017-05-23 00:49 | ECWPNPC ---
PATIENT NAME: NENA BARRY : 1970 GENDER: MALE VISIT DATE: 05/03/2017 DISCHARGE DATE: 05/03/17 1104 VISIT LOCKED DATE TIME: PHYSICIAN: SARI GRANDE RESOURCE: SARI GRANDE REASON FOR APPOINTMENT 1. LOW BACK HISTORY OF PRESENT ILLNESS HISTORY OF PRESENT ILLNESS: PAIN THE PATIENT DESCRIBES THE PAIN... FALL RISK SCREENING: SCREENING :NO FALLS IN THE PAST YEAR TODAY'S VISIT: NOTES: S/P TPI COMPLETED ON 04/24/17. REPORTS HAS NOT FELT WELL SINCE THE INJECTION WITH N/V/D. STATES HAS BEEN HAVING HOT FLASHES AND SWEATS. NO RASH. ON 05/01/17 HAD WORST MUSCLE SPASMS EVER WITH RADITION INTO ABDOMEN. NO RECENT FALLS. . CURRENT MEDICATIONS TAKING SYMBICORT 80-4.5 MCG/ACT AEROSOL 2 PUFFS INHALATION TWICE A DAY TAKING VENTOLIN HFA 108 (90 BASE) MCG/ACT AEROSOL SOLUTION 2 PUFFS NEEDED INHALATION EVERY 4 HRS TAKING SPIRIVA HANDIHALER 18 MCG CAPSULE INHALATION DAILY TAKING FLUOXETINE 20 MG CAPSULE 1 TAB OF 20 MG AND 40 MG ORALLY ONCE A DAY TAKING SINGULAIR 10 MG TABLET 1 TABLET IN THE EVENING ORALLY ONCE A DAY TAKING GABAPENTIN 400 MG CAPSULE 1 CAPSULE ORALLY THREE TIMES A DAY TAKING BACLOFEN 20 MG TABLET 1 TABLET WITH FOOD OR MILK ORALLY EVERY 8 HRS TAKING DEXMETHYLPHENIDATE HCL ER 15 MG CAPSULE EXTENDED RELEASE 24 HOUR 1 CAPSULE IN THE MORNING ORALLY ONCE A DAY TAKING OXYCODONE HCL 10 MG TABLET 1 TABLET NEEDED ORALLY EVERY 6 TO 8 HRS PRN PAIN MDD=3 NOT-TAKING MELOXICAM 7.5 MG TABLET 1 TABLET ORALLY ONCE A DAY NOT-TAKING BACLOFEN 10 MG TABLET 1 TABLET WITH FOOD OR MILK ORALLY THREE TIMES A DAY NOT-TAKING SYMBICORT 80-4.5 MCG/ACT AEROSOL 2 PUFFS INHALATION TWICE A DAY MEDICATION LIST REVIEWED AND RECONCILED WITH THE PATIENT PAST MEDICAL HISTORY ASTHMA COPD HTN ALLERGIES CATS/ENVIRONMENTAL SOCIAL HISTORY GENERAL: TOBACCO USE ARE YOU A:CURRENT SMOKER ARE YOU INTERESTED IN QUITTING?NOT READY TO QUIT PATIENT COUNSELED ON THE DANGERS OF TOBACCO USE AND URGED TO QUIT:03/06/2017 COUNSELED THE PATIENT ON SMOKING EFFECTS, EDUCATION [id number]/07/2017 LEARNING BARRIERS / SPECIAL NEEDS CHANGE FROM LAST VISIT?NO BARRIERS TO LEARNING?NO HEARING IMPAIRED?NO VISION IMPAIRED?NO COGNITIVELY IMPAIRED?NO READINESS TO LEARN?YES LEARNING PREFERENCES?NO LEARNING CAPABILITIES PRESENT?YES EMOTIONAL BARRIERS?NO SPECIAL DEVICES?NO PRINTED CIRCUIT BOARDS PINNER NEEDED?NO PAIN CLINIC PFS, CLERGY, PUBLIC HEALTH REFERRALS PFS REFERRAL NEEDED?NO CLERGY REFERRAL NEEDED?NO PUBLIC HEALTH REFERRAL NEEDED?NO WAS THE PROVIDER NOTIFIED OF ANY PERTINENT INFO?NO HAS THE PATIENT BEEN EDUCATED REGARDING HIS/HER PLAN OF CARE?YES HAS THE PATIENT BEEN EDUCATED REGARDING PAIN, THE RISK FOR PAIN, THE IMPORTANCE OF EFFECTIVE PAIN MANAGEMENT, AND THE PAIN ASSESSMENT PROCESS?YES PATIENT: ____. ADVANCE DIRECTIVES HEALTH CARE PROXY?NO WOULD YOU LIKE MORE INFORMATION?NO DO YOU HAVE A DNR?NO WOULD YOU LIKE MORE INFORMATION?NO LIVING WILL?NO WOULD YOU LIKE MORE INFORMATION?NO POWER OF PHOTOGRAPHER'S ASSISTANT?NO WOULD YOU LIKE MORE INFORMATION?NO REVIEW OF SYSTEMS REVIEWED BY: PROVIDER: SARI PAEZ . CONSTITUTIONAL: ANY CHANGE IN YOUR MEDICAL CONDITION? YES, HAS BEEN NAUSEATED WITH VOMITING SINCE THE NIGHT OF THE INJECTION. ALSO 2 DAYS OF DIARRHEA. . CHILLS NO . FEVER NO . INFECTION: DO YOU HAVE NEW INFECTIONS? NO . DO YOU HAVE HISTORY OF MRSA? NO . MUSCULOSKELETAL: ANY NEW PATTERNS OF PAIN OR NUMBNESS? YES, HANDS AND FEET ARE &QUOT;FALLING ASLEEP&QUOT; . GASTROENTEROLOGY: ANY NEW CHANGE IN BOWEL CONTROL? NO . GENITOURINARY: ANY NEW CHANGE IN BLADDER CONTROL? NO . IS THERE A CHANCE YOU COULD BE ? NO . HEMATOLOGY/LYMPH: DO YOU TAKE ANY BLOOD THINNERS? (FOR EXAMPLE- COUMADIN, PLAVIX, AGGRENOX, PLATEL, PRADAXA, OR XARELTO) NO . WHEN WAS YOUR LAST DOSE? DATE: TIME: . NEUROLOGY: HAVE YOU FALLEN IN THE PAST 6 MONTHS? YES . ANY NEW EXTREMITY NUMBNESS OR WEAKNESS? NO . CARDIOLOGY: DO YOU HAVE A PACEMAKER OR DEFIBRILLATOR? NO . RESPIRATORY: HAVE YOU BEEN SICK IN THE PAST WEEK? YES, VOMITING AND DIARRHEA . FEVER NO . FLU LIKE SYMPTOMS? NO . ASTHMA HAVING HARD TIME BREATHING - USING RESCUE INHALER MORE OFTEN THN ALLOWED. . COUGH NO . INTEGUMENTARY: DO YOU HAVE ANY RASHES OR OPEN SORES? NO . ALLERGIC/IMMUNO: ARE YOU ALLERGIC TO SHELLFISH OR IV DYE? NO . ANY NEW ALLERGIES? NO . PSYCHIATRIC: DO YOU HAVE THOUGHTS OF HURTING YOURSELF OR SOMEONE ELSE? NO . ARE YOU ABUSED, NEGLECTED, OR IN AN UNSAFE ENVIRONMENT? NO . ENDOCRINOLOGY: ARE YOU DIABETIC? NO . OTHER: DO YOU NEED ANY PRESCRIPTIONS? NO . IF YES, PLEASE LIST: ____ . ANY NEW PROBLEMS WITH YOUR MEDICATIONS? NO . WHEN DID YOU LAST EAT? ____ . WHEN DID YOU LAST DRINK? ____ . WHAT DID YOU LAST DRINK? ____ . NAME OF PERSON DRIVING YOU HOME? ____ . DO YOU HAVE ANY OTHER QUESTIONS OR CONCERNS YES . VITAL SIGNS WT 212.4 LBS, HT 67 IN, BMI 33.26 INDEX, BP 140/84 MM HG, HR 80 /MIN, RR 16 /MIN, TEMP 98.6 F, OXYGEN SAT % 99%, NA INITIALS SC 10:25, REVIEWED BY: CONSTANTINO. EXAMINATION GENERAL EXAMINATION: PSYCHALERT , ORIENTED X 3 , APPROPRIATE MOOD AND AFFECT . LUNGS:INTERMITTANT COUGH, SCATTERED WHEEZES. HEART:HEART RATE REGULAR. ABDOMEN:DISTENDED TENDER, BS HYPERACTIVE. MUSCULOSKELETAL:TRIGGER POINTS AND TIGHT FIBROUS BANDS IDENTIFIED OVER RIGHT SCAPULA AND TRAPEZIUS. TENDER TO PALPATION OVER LOW THORACIC AND LUMBAR PARVERTEBRAL MUSCULATURE. ASSESSMENTS MYALGIA - M79.1 (PRIMARY) SPASTICITY - R25.2 PAIN IN THORACIC SPINE - M54.6 OTHER CHRONIC PAIN - G89.29 LOW BACK PAIN ASSOCIATED WITH A SPINAL DISORDER OTHER THAN RADICULOPATHY OR SPINAL STENOSIS - M54.5 TREATMENT MYALGIA START VALIUM TABLET, 5 MG, 1 TABLET NEEDED, ORALLY, Q 8 HRS FOR SEVERE SPASMS FOR 5 DAYS, 30 DAY(S), 15, REFILLS 0 CONTINUE OXYCODONE HCL TABLET, 10 MG, 1 TABLET NEEDED, ORALLY, EVERY 6 TO 8 HRS PRN PAIN MDD=3, 30 DAY(S), 90, REFILLS 0 NOTES: CALL PRIMARY PROVIDER ABOUT BREATHING AND NAUSEA. PREVENTIVE MEDICINE PAIN CLINIC TEACHING: MEDICATIONS VALIUM TEACHING DONE. . PROCEDURE CODES FA211 ESTABILISHED PATIENT [facility] CHARGE DISPOSITION & COMMUNICATION FOLLOW UP 1 MONTH (REASON: BACK PAIN) ELECTRONICALLY SIGNED BY CLARKE OCONNELL ON 05/22/2017 AT 07:14 PM EDT DISCLAIMER : THIS IS A VISIT SUMMARY EXTRACTED FROM THE [employer] CHART. IT IS NOT A COPY OF THE [employer] PROGRESS NOTE. GLENNY
== END ==
LOC: M PAIN 10:00
PROVIDERS: ATTEND Nurse Practitioner Family
DX: M79.1 Myalgia (principal); R25.2 Cramp and spasm; M54.6 Pain in thoracic spine; G89.29 Other chronic pain; M54.5 Low back pain; J45.909 Unspecified asthma, uncomplicated; J44.9 Chronic obstructive pulmonary disease, unspecified; I10 Essential (primary) hypertension; F17.210 Nicotine dependence, cigarettes, uncomplicated; Z79.891 Long term (current) use of opiate analgesic; Z79.899 Other long term (current) drug therapy

== ENCOUNTER → 2017-05-31 | Outpatient (CLI) | payer OTHER ==
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
== END ==
LOC: M PAIN 10:30
PROVIDERS: ATTEND Nurse Practitioner Family
DX: M79.1 Myalgia (principal); R25.2 Cramp and spasm; M54.6 Pain in thoracic spine; G89.29 Other chronic pain; M54.5 Low back pain; Z79.891 Long term (current) use of opiate analgesic; Z79.899 Other long term (current) drug therapy; I10 Essential (primary) hypertension; J44.9 Chronic obstructive pulmonary disease, unspecified; J30.81 Allergic rhinitis due to animal (cat) (dog) hair and dander; J30.9 Allergic rhinitis, unspecified

== ENCOUNTER → 2017-09-18 | Outpatient (CLI) | payer OTHER | LOC: M PAIN 10:00 | DX: M54.5 Low back pain (principal); M62.830 Muscle spasm of back; J44.9 Chronic obstructive pulmonary disease, unspecified; I10 Essential (primary) hypertension; F17.200 Nicotine dependence, unspecified, uncomplicated; J30.81 Allergic rhinitis due to animal (cat) (dog) hair and dander; J30.89 Other allergic rhinitis; Z79.891 Long term (current) use of opiate analgesic; Z79.899 Other long term (current) drug therapy | CPT/HCPCS: G0463 ==

== ENCOUNTER → 2017-10-14 | Outpatient (CLI) | payer OTHER | LOC: M PAIN 09:45 | DX: M79.1 Myalgia (principal); R25.2 Cramp and spasm; M54.5 Low back pain; I10 Essential (primary) hypertension; J44.9 Chronic obstructive pulmonary disease, unspecified; F17.210 Nicotine dependence, cigarettes, uncomplicated; Z79.891 Long term (current) use of opiate analgesic; J30.81 Allergic rhinitis due to animal (cat) (dog) hair and dander | CPT/HCPCS: G0463 ==

== ENCOUNTER → 2017-12-02 | Outpatient (CLI) | payer OTHER | LOC: M PAIN 09:45 | DX: M79.1 Myalgia (principal); R25.2 Cramp and spasm; M54.5 Low back pain; I10 Essential (primary) hypertension; J44.9 Chronic obstructive pulmonary disease, unspecified; F17.210 Nicotine dependence, cigarettes, uncomplicated; Z79.891 Long term (current) use of opiate analgesic; Z79.899 Other long term (current) drug therapy; J30.81 Allergic rhinitis due to animal (cat) (dog) hair and dander; J30.2 Other seasonal allergic rhinitis | CPT/HCPCS: G0463 ==

== ENCOUNTER → 2018-01-13 | Outpatient (CLI) | payer OTHER | LOC: M PAIN 10:00 | DX: M79.1 Myalgia (principal); R25.2 Cramp and spasm; M54.5 Low back pain; J44.9 Chronic obstructive pulmonary disease, unspecified; I10 Essential (primary) hypertension; F17.210 Nicotine dependence, cigarettes, uncomplicated; Z79.899 Other long term (current) drug therapy; Z88.0 Allergy status to penicillin | CPT/HCPCS: G0463 ==

== ENCOUNTER → 2018-04-21 | Outpatient (CLI) | payer OTHER | LOC: M PAIN 09:30 | DX: M79.1 Myalgia (principal); R25.2 Cramp and spasm; M54.5 Low back pain; J44.9 Chronic obstructive pulmonary disease, unspecified; I10 Essential (primary) hypertension; F17.200 Nicotine dependence, unspecified, uncomplicated; Z79.899 Other long term (current) drug therapy; Z88.0 Allergy status to penicillin; Z87.820 Personal history of traumatic brain injury | CPT/HCPCS: G0463 ==

== ENCOUNTER → 2018-07-21 | Outpatient (CLI) | payer OTHER | LOC: M PAIN 09:30 | DX: R25.2 Cramp and spasm (principal); M54.5 Low back pain; M79.18 Myalgia, other site; J45.909 Unspecified asthma, uncomplicated; J44.9 Chronic obstructive pulmonary disease, unspecified; I10 Essential (primary) hypertension; F17.210 Nicotine dependence, cigarettes, uncomplicated; Z79.899 Other long term (current) drug therapy; Z79.891 Long term (current) use of opiate analgesic; Z88.0 Allergy status to penicillin | CPT/HCPCS: G0463 ==

== ENCOUNTER → 2018-07-21 | Outpatient (CLI) | payer OTHER | LOC: M RAD 15:31 | DX: H90.6 Mixed conductive and sensorineural hearing loss, bilateral (principal); H74.03 Tympanosclerosis, bilateral | CPT/HCPCS: 70480 ==

== ENCOUNTER → 2018-10-08 | Outpatient (CLI) | payer OTHER ==
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
== END ==
LOC: M PAIN 10:00
PROVIDERS: ATTEND Nurse Practitioner Family
DX: R25.2 Cramp and spasm (principal); M79.10 Myalgia, unspecified site; I10 Essential (primary) hypertension; J44.9 Chronic obstructive pulmonary disease, unspecified; G43.909 Migraine, unspecified, not intractable, without status migrainosus; Z72.0 Tobacco use; Z79.899 Other long term (current) drug therapy; Z88.0 Allergy status to penicillin; Z79.891 Long term (current) use of opiate analgesic; Z87.820 Personal history of traumatic brain injury

== ENCOUNTER 2018-11-23 02:10 | Emergency (ER) | payer OTHER ==
[~2018-11-23] VITALS: Ht 170.2 cm; Wt 87.7 kg
[2018-11-23 02:11] VITALS: BP 138/87
== END 2018-11-23 03:56 | disposition left against medical advice (07) ==
LOC: M ED 02:10
DX: K13.79 Other lesions of oral mucosa (principal); M54.9 Dorsalgia, unspecified; G43.909 Migraine, unspecified, not intractable, without status migrainosus; G89.29 Other chronic pain; F17.200 Nicotine dependence, unspecified, uncomplicated; Z80.0 Family history of malignant neoplasm of digestive organs

== ENCOUNTER → 2018-12-31 | Outpatient (CLI) | payer OTHER ==
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
== END ==
LOC: M PAIN 09:30
PROVIDERS: ATTEND Nurse Practitioner Family
DX: M79.18 Myalgia, other site (principal); R25.2 Cramp and spasm; J44.9 Chronic obstructive pulmonary disease, unspecified; I10 Essential (primary) hypertension; G43.909 Migraine, unspecified, not intractable, without status migrainosus; Z87.820 Personal history of traumatic brain injury; F17.210 Nicotine dependence, cigarettes, uncomplicated; Z88.0 Allergy status to penicillin; Z91.09 Other allergy status, other than to drugs and biological substances; Z79.899 Other long term (current) drug therapy

== ENCOUNTER → 2019-02-12 | Outpatient (REF) | payer OTHER | LOC: M SFHCPLAZ 18:18 | PROVIDERS: ATTEND Dermatology | DX: D22.61 Melanocytic nevi of right upper limb, including shoulder (principal) ==

== ENCOUNTER → 2019-04-06 | Outpatient (CLI) | payer OTHER ==
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
== END ==
LOC: M PAIN 09:00
PROVIDERS: ATTEND Nurse Practitioner Family
DX: G89.29 Other chronic pain (principal); M79.18 Myalgia, other site; J44.9 Chronic obstructive pulmonary disease, unspecified; J30.81 Allergic rhinitis due to animal (cat) (dog) hair and dander; F17.210 Nicotine dependence, cigarettes, uncomplicated; I10 Essential (primary) hypertension; G43.909 Migraine, unspecified, not intractable, without status migrainosus; Z87.820 Personal history of traumatic brain injury; Z79.891 Long term (current) use of opiate analgesic; Z79.899 Other long term (current) drug therapy; Z88.0 Allergy status to penicillin

== ENCOUNTER → 2019-05-15 | Outpatient (CLI) | payer OTHER ==
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
== END ==
LOC: M PAIN 08:45
PROVIDERS: ATTEND Nurse Practitioner Family
DX: M79.18 Myalgia, other site (principal); G89.29 Other chronic pain; J44.9 Chronic obstructive pulmonary disease, unspecified; I10 Essential (primary) hypertension; G43.909 Migraine, unspecified, not intractable, without status migrainosus; Z87.820 Personal history of traumatic brain injury; F17.210 Nicotine dependence, cigarettes, uncomplicated; Z88.0 Allergy status to penicillin; Z79.899 Other long term (current) drug therapy

== ENCOUNTER → 2020-10-14 | Outpatient (CLI) | payer OTHER | LOC: M RAD 11:14 | PROVIDERS: ATTEND Orthopaedic Surgery | DX: Z53.9 Procedure and treatment not carried out, unspecified reason (principal); M54.5 Low back pain ==

== ENCOUNTER → 2020-11-08 | Outpatient (CLI) | payer OTHER ==
--- NOTE | 2020-11-08 12:53 | REPVR ---
PROCEDURE INFORMATION: Exam: MR Lumbar Spine Without Contrast. Exam date and time: 11/08/2020 11:54 AM Age: 50 years old Clinical indication: Low back pain; Additional info: Lbp TECHNIQUE: Imaging protocol: Multiplanar magnetic resonance images of the lumbar spine without intravenous contrast. COMPARISON: CR Spine. Lumbosacral, complete 08/22/2016 11:54 AM FINDINGS: Vertebrae: Slight dextroconvex scoliosis. No acute fracture seen. The AP spinal canal diameter is mildly diminished on a developmental basis due to shortened pedicles. Spinal cord: The conus medullaris ends normally. Disc desiccation with [id number] disc height loss and spondylosis at L5-S1; mixed fatty and inflammatory degenerative marrow signal change of the endplates. Elsewhere, the intervertebral disc heights are preserved. There are small lower thoracic and upper lumbar endplate Schmorl's nodes. L1-L2: No significant disc disease. No significant spinal canal stenosis. No neural foraminal stenosis. L2-L3: Mild right facet arthropathy. No stenoses. L3-L4: Mild bilateral facet arthropathy. A small extra canalicular synovial cyst on the left. No stenoses. L4-L5: Mild diffuse disc bulge as well as moderate facet arthropathy with right greater than left ligamentum flavum buckling. High-intensity zone in left foraminal disc margin without a focal disc protrusion or extrusion. Central spinal canal and right lateral recess stenoses are mild. Mild bilateral neural foraminal stenoses. L5-S1: Moderate right eccentric disc osteophyte and facet arthropathy with left facet joint effusion. A right paracentral disc protrusion measures approximately 5 mm in AP dimension; this posteriorly displaces the right S1 nerve root. Central spinal canal stenosis is mild. Severe right neural foraminal stenosis, the exiting right L5 nerve root abutting foraminal to far lateral disc osteophyte complex. Soft tissues: Nonspecific edema in the back subcutaneous, potentially dependent/positional. IMPRESSION: 1. Degenerative disc disease at L5-S1. 2. A right paracentral disc protrusion at L5-S1 may be cause of right S1 distribution radiculopathy. 3. Severe right neural foraminal stenosis at L5-S1 may be cause of right L5 distribution radiculopathy. Electronically signed by: Nely Rick On 11/08/2020 12:53:06 PM
== END ==
LOC: M RAD 10:50
PROVIDERS: ATTEND Orthopaedic Surgery
DX: M51.37 Other intervertebral disc degeneration, lumbosacral region (principal); M51.27 Other intervertebral disc displacement, lumbosacral region; M48.07 Spinal stenosis, lumbosacral region